=== PATIENT | male | born 1995 | race Caucasian/White ===

== ENCOUNTER 2017-01-05 20:43 | Emergency (ER) | payer SELFPAY ==
[~2017-01-05] VITALS: Ht 180.3 cm; Wt 65.8 kg
[~2017-01-05 20:43] MED LIST: AMOXIL500 MG PO; ATARAX25 MG PO; BACTRIM DS 8001 TA1 PO; CEPHALEXIN500 M1 PO; CORT DOME 0.5%30 GM T; HYDROCODONE BIT1 T11 PO; KWELL PO; LIDEX0.05% T; MOTRIN800 MG PO; PEN-VEE K500 MG PO; PREDNISONE20 MG PO; TRAMADOL HCL50 MG PO
[2017-01-05] MEDS ORDERED: CEPHALEXIN500 M1 PO (21:05)
[2017-01-05] MEDS ORDERED: BACTRIM DS 8001 TA1 PO (21:05)
== END 2017-01-05 20:55 | disposition home or self-care (01) ==
LOC: ED 20:43
DX: L02.414 Cutaneous abscess of left upper limb (principal)

== ENCOUNTER 2018-05-20 00:30 | Emergency (ER) | payer SELFPAY ==
[~2018-05-20] VITALS: Ht 180.3 cm; Wt 65.8 kg
[2018-05-20] MEDS ORDERED: NAPROSYN500 MG PO (00:36)
[2018-05-20] MEDS ORDERED: CLINDAMYCIN150 MG PO (00:36)
== END 2018-05-20 00:40 | disposition home or self-care (01) ==
LOC: ED 00:30
DX: K08.89 Other specified disorders of teeth and supporting structures (principal); F17.200 Nicotine dependence, unspecified, uncomplicated